=== PATIENT | male | born 1965 | race Caucasian/White ===

== ENCOUNTER 2019-07-01 21:14 | Emergency (ER) | payer SELFPAY ==
--- NOTE | 2019-07-01 21:31 | PHYS DOC ---
Past History Past Medical History: CAD, Hypertension, Other Past Surgical History: Coronary Bypass Surgery Past Surgical History carotid endarterectomy Adult General Chief Complaint Chief Complaint: ".. I ve been coughing.. and now running a fever...it all star memo maybe Friday or Friday... HPI HPI Patient is a 53 year old male who presents with above hx and complaints of cough, fever, chills, malaise, and chest wall discomfort. Patient does have an extensive cardiac/ neurovascular history. Stents in cardiac bypass in 2008 after myocardial infarction. Has had bilateral carotid endarterectomy 2014 and 2 019. Patient denies any history immunosuppression. Patient does not believe in getting flu vaccinations. No recent travel or specific ill contacts. Normally follows [facility] cardiology for his care. Primary care has been in [facility]. Review of Systems Review of Systems Constitutional: History of fever or chills [] Eyes: Denies change in visual acuity, redness, or eye pain [] HENT: History of nasal congestion or sore throat [] Respiratory: History cough and shortness of breath [] Cardiovascular: No additional information not addressed in HPI [] GI: Denies abdominal pain, nausea, vomiting, bloody stools or diarrhea [] : Denies dysuria or hematuria [] Musculoskeletal: Complaints of myalgia and arthralgia Integument: Denies rash or skin lesions [] Neurologic: Denies headache, focal weakness or sensory changes [] Endocrine: Denies polyuria or polydipsia [] All other systems were reviewed and found to be within normal limits, except as documented in this note. Family History Family History Noncontributory to current presentation Current Medications Current Medications See nursing for home meds Allergies Allergies Allergic to penicillin Physical Exam Physical Exam Constitutional: Moderate acute distress, non-toxic appearance. [] HENT: Normocephalic, atraumatic, bilateral external ears normal, oropharynx mois t, mild injection of pharynx, no oral exudates, nose clear rhinorrhea and swollen turbinates] Eyes: PERRLA, EOMI, conjunctiva normal, no discharge. [] Neck: Normal range of motion, no tenderness, supple, no stridor. [] Bilateral carotid- scar surgeries Cardiovascular: Tachycardia Heart rate regular rhythm, no murmur []PMI to the left Lungs & Thorax: Bilateral breath sounds equal at apexes scattered wheezes throughout on auscultation . Pt. has bi- basilar crackles]. Mid line scar Abdomen: Bowel sounds normal, soft, no tenderness, no masses, no pulsatile masses. Obese.[] Skin: Warm, dry, no erythema, no rash. [] Back: No tenderness, no CVA tenderness. [] Extremities: No tenderness, no cyanosis, no clubbing, ROM intact, no edema. [] No cording appreciated Neurologic: Alert and oriented X 3, normal motor function, normal sensory function, no focal deficits noted. [] Psychologic: Affect anxious, judgement normal, mood normal. [] EKG EKG My interpretation EKG sinus tachycardia 102 bpm.[] Does have left axis deviation and nonspecific contour abnormalities. Radiology/Procedures Radiology/Procedures [][address] [address] IMAGING REPORT Signed PATIENT: ALY PITTS ACCOUNT: [id number] : 1965 LOCATION: ER AGE: 53 SEX: M EXAM STATUS: REG ER ORD. PHYSICIAN: TALIB ZAVALA MD REASON: Congestion, cough PROCEDURE: CHEST PA & LATERAL Chest, PA and Lateral: Technique: PA and lateral views of the chest were obtained. History: Cough, congestion. Comparison: None. Findings: Low lung volumes accentuate heart size and pulmonary vascularity. Mild airspace opacity identified in the right lower lung likely pneumonia or atelectasis. Mild degenerative changes thoracic spine. IMPRESSION: Mild focal airspace opacity likely pneumonia or atelectasis. Follow-up to resolution. Electronically signed by: Nima Maria MD (07/01/2019 10:46 PM) [id number] DICTATED AND SIGNED BY: NIMA MARIA MD DATE: 07/01/192245 CC: TALIB ZAVALA MD; PCP,NO ~ Course & Med Decision Making Course & Med Decision Making Pertinent Labs and Imaging studies reviewed. (See chart for details) Patient uses MDI 2 puffs 4 times day. Patient take Zithromax 250 mg a day. Patient follow-up primary care. Patient return of any concerns. Impression: 1. Atypical basilar pneumonia was his atelectasis 2. Elevated creatinine 1.7 3. Elevated CK 349 4. Elevated BNP 633; [] Dragon Disclaimer Dragon Disclaimer This electronic medical record was generated, in whole or in part, using a voice recognition dictation system. Departure Departure: Disposition: 01 HOME/RESIDENCE PRIOR TO ADM Condition: STABLE Referrals: PCP,NO (PCP) Scripts Azithromycin (ZITHROMAX) 250 Mg Tablet 250 MG PO DAILY for ANTI-BIOTIC for 5 Days, #5 TAB 0 Refills Prov: TALIB ZAVALA MD 07/02/19 Draglauren Disclaimer This chart was dictated in whole or in part using Voice Recognition software in a busy, high-work load, and often noisy Emergency Department environment. It may contain unintended and wholly unrecognized errors or omissions. TALIB ZAVALA MD Jul 01, 2019 21:31
[2019-07-01] MEDS ORDERED: IV RINGERS SOLUTION,LACTATED 1,000 ML IV SCH (21:32)
[2019-07-01] MEDS ORDERED: ASPIRIN 81 MG TAB.CHEW PO ONE (22:00)
[2019-07-01 22:27] LABS: BASO # 0.1 x10^3/uL (0.0-0.2); BASO % 1 % (0-3); EOS # 0.1 x10^3/uL (0.0-0.7); EOS % 1 % (0-3); HEMATOCRIT 40.4 % (39.0-53.0); HEMOGLOBIN 14.2 g/dL (13.0-17.5); LYMPH # 1.2 x10^3/uL (1.0-4.8); LYMPH % 12 % (24-48); MEAN CORPUSCULAR HEMOGLOBIN 34 pg (25-35); MEAN CORPUSCULAR HGB CONC 35 g/dL (31-37); MEAN CORPUSCULAR VOLUME 96 fL (79-100); MONO # 0.8 x10^3/uL (0.0-1.1); MONO % 8 % (0-9); NEUT # 8.2 x10^3uL (1.8-7.7); NEUT % 78 % (31-73); PLATELET COUNT 228 x10^3/uL (140-400); RED BLOOD COUNT 4.22 x10^6/uL (4.30-5.70); RED CELL DISTRIBUTION WIDTH 12.8 % (11.5-14.5); WHITE BLOOD COUNT 10.5 x10^3/uL (4.0-11.0)
--- NOTE | 2019-07-01 22:49 | RAD ---
Chest, PA and Lateral: Technique: PA and lateral views of the chest were obtained. History: Cough, congestion. Comparison: None. Findings: Low lung volumes accentuate heart size and pulmonary vascularity. Mild airspace opacity identified in the right lower lung likely pneumonia or atelectasis. Mild degenerative changes thoracic spine. IMPRESSION: Mild focal airspace opacity likely pneumonia or atelectasis. Follow-up to resolution. Electronically signed by: Nima Maria MD (07/01/2019 10:46 PM) [id number]
[2019-07-01 23:33] LABS: INFLUENZA A PATIENT NEGATIVE (NEGATIVE); INFLUENZA B PATIENT NEGATIVE (NEGATIVE)
[2019-07-02] MEDS ORDERED: ALBUTEROL SULFATE 8GM INHALER. INH ONE
[2019-07-02] MEDS ORDERED: AZITHROMYCIN 250 MG TABLET. PO ONE
[2019-07-02] MEDS ORDERED: IV RINGERS SOLUTION,LACTATED 1,000 ML IV ONE (00:15)
[2019-07-02 00:38] LABS: CALCIUM 8.6 mg/dL (8.5-10.1); CREATININE 1.7 mg/dL (0.7-1.3); GFR 42.2; POTASSIUM 3.5 mmol/L (3.5-5.1)
[2019-07-02 00:50] LABS: ALBUMIN 3.6 g/dL (3.4-5.0); DIRECT BILIRUBIN 0.2 mg/dL (0.0-0.2); MAGNESIUM 2.2 mg/dL (1.8-2.4); TOTAL BILIRUBIN 0.8 mg/dL (0.2-1.0); TOTAL PROTEIN 7.3 g/dL (6.4-8.2)
[2019-07-02] MEDS ORDERED: AZIT250T PO (01:06)
[2019-07-02 01:13] VITALS: BP 123/87
[2019-07-02 01:31] LABS: BARBITURATES NEG (NEG); BENZODIAZEPINES NEG (NEG); CANNABINOIDS NEG (NEG); COCAINE NEG (NEG); METHADONE NEG (NEG); OPIATES NEG (NEG); PHENCYCLIDINE NEG (NEG)
[2019-07-02 01:34] LABS: BACTERIA,URINE 0 /HPF (0-FEW); BILIRUBIN,URINE NEG (NEG); CLARITY,URINE CLEAR; COLOR,URINE YELLOW; GLUCOSE,URINE NEG (NEG); NITRITE,URINE NEG (NEG); RBC,URINE OCC /HPF (0-2); SQUAMOUS EPITHELIAL CELL,UR OCC /LPF; WBC,URINE RARE /HPF (0-4)
[2019-07-02 01:39] LABS: AMPHETAMINE/METHAMPHETAMINE NEG (NEG)
== END 2019-07-02 01:25 | disposition home or self-care (01) ==
LOC: ER 21:14
DX: J18.9 Pneumonia, unspecified organism (principal); J98.11 Atelectasis; R79.89 Other specified abnormal findings of blood chemistry; I25.810 Atherosclerosis of coronary artery bypass graft(s) without angina pectoris; I10 Essential (primary) hypertension
CPT/HCPCS: 36415; 71046; 80048; 80076; 80307; 81001; 82550; 83605; 83690; 83735; 83880; 84443; 84484; 85025; 85379; 85610; 85730; 87040; 87070; 87804; 87880; 93005; 94640; 99285; J0456; J7120; J7613; 96360; 96361